=== PATIENT | male | born 1980 | race Caucasian/White ===

== ENCOUNTER 2016-06-04 22:13 | Emergency (ER) | payer MEDICAID | END 2016-06-04 23:30 | disposition home or self-care (01) | LOC: D.ER 22:13 | DX: M54.9 Dorsalgia, unspecified (principal); F17.200 Nicotine dependence, unspecified, uncomplicated ==

== ENCOUNTER 2016-11-23 19:53 | Emergency (ER) | payer MEDICAID | END 2016-11-23 21:32 | disposition home or self-care (01) | LOC: D.ER 19:53 | DX: S20.212A Contusion of left front wall of thorax, initial encounter (principal); W19.XXXA Unspecified fall, initial encounter; Y93.89 Activity, other specified; Y92.89 Other specified places as the place of occurrence of the external cause; S80.811A Abrasion, right lower leg, initial encounter; R00.0 Tachycardia, unspecified; R07.9 Chest pain, unspecified; F17.200 Nicotine dependence, unspecified, uncomplicated ==

== ENCOUNTER 2017-08-06 20:23 | Emergency (ER) | payer MEDICAID | END 2017-08-06 22:45 | disposition home or self-care (01) | LOC: D.ER 20:23 | DX: S39.012A Strain of muscle, fascia and tendon of lower back, initial encounter (principal); V43.52XA Car driver injured in collision with other type car in traffic accident, initial encounter; Y93.89 Activity, other specified; Y92.410 Unspecified street and highway as the place of occurrence of the external cause; F17.200 Nicotine dependence, unspecified, uncomplicated ==

== ENCOUNTER 2018-05-28 22:58 | Emergency (ER) | payer MEDICAID ==
[~2018-05-28] VITALS: Ht 182.9 cm; Wt 68.2 kg
[2018-05-28 23:04] VITALS: Ht 182.9 cm; Wt 68.2 kg
[2018-05-29] MEDS ORDERED: ZOFRAN8 MG PO (00:07)
[2018-05-29] MEDS ORDERED: LOMOTIL 2.5-0.1 EAC1 PO (00:07)
[2018-05-29 00:23] VITALS: BP 120/70
== END 2018-05-29 00:24 | disposition home or self-care (01) ==
LOC: D.ER 22:58
DX: A08.4 Viral intestinal infection, unspecified (principal); R05 Cough; R09.89 Other specified symptoms and signs involving the circulatory and respiratory systems

== ENCOUNTER 2018-10-08 20:04 | Emergency (ER) | payer MEDICAID ==
[~2018-10-08] VITALS: Ht 182.9 cm; Wt 75.0 kg
[~2018-10-08 20:04] MED LIST: LOMOTIL 2.5-0.1 EAC1 PO; ZOFRAN8 MG PO
[2018-10-08 20:10] VITALS: BP 123/76; Ht 182.9 cm; Wt 75.0 kg
[2018-10-08] MEDS ORDERED: DICLOFENAC SODI50 MG PO (20:53)
== END 2018-10-08 21:14 | disposition home or self-care (01) ==
LOC: D.ER 20:04
DX: T14.8XXA Other injury of unspecified body region, initial encounter (principal); W13.3XXA Fall through floor, initial encounter; Y93.89 Activity, other specified; Y92.89 Other specified places as the place of occurrence of the external cause

== ENCOUNTER 2018-10-12 10:50 | Emergency (ER) | payer MEDICAID ==
[~2018-10-12 10:50] MED LIST changes: +DICLOFENAC SODI50 MG PO
[2018-10-12 10:52] VITALS: BP 111/60; BMI 20.4
== END 2018-10-12 12:43 | disposition home or self-care (01) ==
LOC: D.ER 10:50
DX: S61.512A Laceration without foreign body of left wrist, initial encounter (principal); W26.8XXA Contact with other sharp object(s), not elsewhere classified, initial encounter; Y93.H2 Activity, gardening and landscaping; Y92.017 Garden or yard in single-family (private) house as the place of occurrence of the external cause

== ENCOUNTER 2019-10-06 20:32 | Emergency (ER) | payer SELFPAY ==
[~2019-10-06] VITALS: Ht 182.9 cm; Wt 76.1 kg
[2019-10-06 21:06] VITALS: Ht 182.9 cm; Wt 76.1 kg
[2019-10-06 21:35] LABS: BASOPHILS 0.4 % (0-2); EOSINOPHILS 4.9 % (0-7); HEMATOCRIT 43.1 % (42.0-54.0); HEMOGLOBIN 15.1 g/dL (13.5-17.5); IMMATURE GRANULOCYTES 0.4 % (0-5); LYMPHOCYTES 38.5 % (15-50); MCH 30.8 pg (26.0-34.0); MEAN PLATELET VOLUME 10.1 fL (7.4-10.4); MONOCYTES 8.4 % (2-11); NEUTROPHILS 47.4 % (40-80); PLATELET COUNT 161 10x3/uL (130-400); RDW 13.1 % (11.5-14.5); WBC 7.7 10x3/uL (4.8-10.8)
[2019-10-06 21:41] LABS: APTT 26.7 SECONDS (22.8-39.4); INR 0.9 (0.85-1.17); PROTIME 12.2 SECONDS (11.6-15.0)
[2019-10-06 21:47] LABS: CALC OSMOLALITY 273 mosm/kg (275-300); CALCIUM 9.3 mg/dL (8.5-10.1); CHLORIDE - SERUM 102 mmol/L (98-107); GLUCOSE 93 mg/dL (74-106); POTASSIUM - SERUM 3.9 mmol/L (3.5-5.1); SODIUM 137 mmol/L (136-145); UREA NITROGEN 13 mg/dL (7-18); eGFR NON AFRICAN AMERICAN 89 mL/min (90-120)
[2019-10-06 22:02] LABS: ALBUMIN 3.8 g/dL (3.4-5.0); ALKALINE PHOSPHATASE 92 U/L (30-120); ALT (SGPT) 20 U/L (10-68); BILIRUBIN - TOTAL 0.27 mg/dL (0.2-1.3); CKMB 0.9 U/L (0.0-3.6); CREATINE KINASE 115 UL (21-232); MAGNESIUM - SERUM 2.2 mg/dL (1.8-2.4); PROTEIN - SERUM 7.1 g/dL (6.4-8.2)
[2019-10-06 22:03] LABS: TROPONIN-I < 0.017 ng/mL (0.000-0.060)
[2019-10-07 00:15] LABS: LIPASE 322 U/L (73-393)
[2019-10-07 00:16] LABS: TROPONIN-I < 0.017 ng/mL (0.000-0.060)
[2019-10-07] MEDS ORDERED: PEPCID40 MG PO (00:35)
[2019-10-07 00:58] VITALS: BP 104/62
== END 2019-10-07 00:58 | disposition home or self-care (01) ==
LOC: D.ER 20:32
PROVIDERS: Family Medicine
DX: R10.13 Epigastric pain (principal); K29.70 Gastritis, unspecified, without bleeding; R07.9 Chest pain, unspecified

== ENCOUNTER 2020-01-02 11:22 | Emergency (ER) | payer SELFPAY ==
[~2020-01-02 11:22] MED LIST changes: +PEPCID40 MG PO
[2020-01-02 11:24] VITALS: Ht 182.9 cm
[2020-01-02] MEDS ORDERED: NAPROSYN500 MG PO (11:49)
[2020-01-02] MEDS ORDERED: PREDNISONE20 MG PO (11:49)
[2020-01-02] MEDS ORDERED: BACLOFEN10 MG PO (12:42)
[2020-01-02 13:53] VITALS: BP 164/50
== END 2020-01-02 13:53 | disposition home or self-care (01) ==
LOC: D.ER 11:22
DX: M54.12 Radiculopathy, cervical region (principal); R20.2 Paresthesia of skin; M47.9 Spondylosis, unspecified